=== PATIENT | male | born 1945 | race Caucasian/White ===

== ENCOUNTER 2023-11-15 10:14 | Inpatient (IN) | payer MEDICARE ==
[2023-11-09 14:48] LABS: BASOPHILS # (AUTO) 0.1 X10'3 (0-0.2); BASOPHILS % (AUTO) 0.6 % (0-1); EOSINOPHILS # (AUTO) 0.3 X10'3 (0-0.9); EOSINOPHILS % (AUTO) 3.6 % (0-6); LYMPHOCYTES # (AUTO) 1.5 X10'3 (1.1-4.8); LYMPHOCYTES % (AUTO) 16.9 % (21-51); MEAN CORPUSCULAR HEMOGLOBIN 31.9 PG (27.0-31.0); MEAN CORPUSCULAR HGB CONC 33.8 g/dL (33.0-36.5); MEAN CORPUSCULAR VOLUME 94.5 FL (78-98); MEAN PLATELET VOLUME 6.5 FL (7.4-10.4); MONOCYTES # (AUTO) 0.8 X10'3 (0-0.9); MONOCYTES % (AUTO) 8.5 % (2-12); NEUTROPHILS # (AUTO) 6.4 X10'3 (1.8-7.7); NEUTROPHILS % (AUTO) 70.4 % (42-75); PRE OP HEMATOCRIT 42.8 % (42.0-52.0); PRE OP HEMOGLOBIN 14.5 g/dL (14.0-17.9); PRE OP PLATELET COUNT 337 X10'3 (140-440); RED BLOOD COUNT 4.53 X10'6 (4.70-6.10); RED CELL DISTRIBUTION WIDTH 13.6 % (11.5-14.5)
[2023-11-09 15:06] LABS: ALBUMIN 4.2 G/DL (3.4-5.0); ALBUMIN/GLOBULIN RATIO 1.1 (1.1-1.5); ALKALINE PHOSPHATASE 84 IU/L (46-116); BLOOD UREA NITROGEN 11 MG/DL (7-18); BUN/CREATININE RATIO 15.3 (10.0-20.0); CALCIUM 9.6 MG/DL (8.5-10.1); CHLORIDE 94 MMOL/L (99-107); CREATININE 0.72 MG/DL (0.60-1.10); PRE OP ALT 31 U/L (30-65); PRE OP ANION GAP 8 (8-16); PRE OP AST 21 U/L (10-37); PRE OP BILIRUB, TOTAL 0.7 MG/DL (0.0-1.0); PRE OP GLUCOSE 103 MG/DL (70-104); PRE OP POTASSIUM 4.4 MMOL/L (3.4-5.1); PRE OP SODIUM 131 MMOL/L (135-145); TOTAL CARBON DIOXIDE 28.6 MMOL/L (24-32); TOTAL PROTEIN 7.9 G/DL (6.4-8.2); eGFR > 90 ML/MIN
[~2023-11-15] VITALS: Ht 190.5 cm; Wt 80.2 kg
[2023-11-15] VITALS (45 sets, daily range): BP systolic 90–148; BP diastolic 50–95; PULSE 74–108; RESP 11–29; TEMP 96.8–97.1; O2SAT 87–100
[2023-11-15] MEDS: cefazolin 2gm/D5W 100mL 100 ML IV ONE (05:30)
[~2023-11-15 10:14] MED LIST: AMLO5TAB16 PO; ASHWAGANDA; ASPIRIN; BENA10TA74 PO; GINSENG; MAGNESIUM; PRESERVISION; TEST75GE10 TOP; VITAMIN C; VITAMIN D3
[2023-11-15] MEDS: tamsulosin 0.4mg capsule PO ONE (10:40)
[2023-11-15] MEDS: famotidine 20mg tablet PO ONE (10:40)
[2023-11-15] MEDS: ringers solution, lacted 1,000 ML IV SCH (10:44)
[2023-11-15 11:23] LABS: ISTAT ANION GAP 7 (8-12); ISTAT BUN 17 mg/dL (7-18); ISTAT CL 96 mmol/L (99-107); ISTAT CREATININE 0.8 mg/dL (0.8-1.3); ISTAT GLUCOSE 98 mg/dL (70-104); ISTAT HGB 14.6 g/dl (14.0-17.9); ISTAT Hct 43 %PCV (42-52); ISTAT IONIZED CALCIUM 1.16 mmol/L (1.03-1.32); ISTAT K 4.3 mmol/L (3.5-5.1); ISTAT NA 131 mmol/L (135-145); ISTAT TOTAL CO2 28 mmol/L (24-32); ISTAT eGFR > 90 ML/MIN; POC BUN/CREATININE RATIO 21.3 (5.4-32.0)
[2023-11-15] MEDS: LIDOcaine 1% (10mg/ml)w/preservative inj. 20ml MDV ONE (11:23)
[2023-11-15] MEDS ORDERED: morphine 4 MG/ML inj SYRINge IV PRN (11:40)
[2023-11-15] MEDS ORDERED: proCHLORperazine 10 MG/2 ml inj IV PRN (11:40)
[2023-11-15] MEDS ORDERED: hydrALAZINE 20mg/ml inj. IV PRN (11:40)
[2023-11-15] MEDS ORDERED: meperidine/PF 25mg/ml syringe IV PRN ×3 (11:40)
[2023-11-15] MEDS ORDERED: ondansetron/PF 4mg/2ml inj IV PRN ×2 (11:40→18:30)
[2023-11-15] MEDS ORDERED: sevoflurane 250ml liquid IH ONE (11:40)
[2023-11-15] MEDS ORDERED: morphine 2 MG/ML inj. syringe IV PRN (11:40)
[2023-11-15] MEDS ORDERED: labetalol 20mg/4ml (5mg/ml) syringe IV PRN (11:40)
[2023-11-15] MEDS ORDERED: midazolam 1 mg/ML 2ml injection ONE (11:46)
[2023-11-15] MEDS ORDERED: fentaNYL /PF 50mcg/ml 5ml ampule ONE ×2 (11:47→11:54)
[2023-11-15] MEDS ORDERED: rocuronium 10mg/ml inj IV ONE (12:20)
[2023-11-15] MEDS ORDERED: propofol inj 20 ML IV ONE (12:20)
[2023-11-15] MEDS ORDERED: LIDOcaine 2% (20mg/ml) 5ml vial ONE (12:20)
[2023-11-15] MEDS ORDERED: ondansetron/PF 4mg/2ml inj ONE (12:20)
[2023-11-15] MEDS ORDERED: dexamethasone sod phosphate 4mg/ml inj. ONE (12:20)
[2023-11-15] MEDS: LIDOCAINE 1% w/preservative (10 MG/ML) inj. 10mL VIAL IJ ONE (12:26)
[2023-11-15] MEDS ORDERED: 0.9 % SODIUM CHLORIDE 10 ML VIAL ONE (12:55)
[2023-11-15] MEDS ORDERED: ePHEDrine 50MG/ML INJ. ONE (12:55)
[2023-11-15] MEDS ORDERED: glycopyrrolate 0.2mg/ml inj ONE (13:40)
[2023-11-15] MEDS ORDERED: neostigmine methylsulfate 1 MG/ML 10ml vial ONE (13:40)
[2023-11-15] MEDS ORDERED: HYDROcodone/acetaminophen 5mg/325mg tablet PO PRN (14:20)
[2023-11-15] MEDS ORDERED: HYDR-3964 PO (14:25)
[2023-11-15] MEDS: ipratropium/albuterol 3ml nebule NEB PRN (16:26)
[2023-11-15] MEDS: LidoCAINE 2% Topical Jelly 11mL syringe (UROJET) TOP STA (17:25)
[2023-11-15] MEDS: furosemide 20 MG/2 ML vial IV STA (17:47)
[2023-11-15] MEDS ORDERED: furosemide 40mg/4ml inj ONE (17:56)
[2023-11-15] MEDS ORDERED: magnesium 2GM in 50ml NS 50 ML IV PRN (18:30)
[2023-11-15] MEDS ORDERED: acetaminophen 650mg rectal suppository RC PRN (18:30)
[2023-11-15] MEDS ORDERED: acetaminophen 325mg tablet PO PRN (18:30)
[2023-11-15] MEDS ORDERED: magnesium hydroxide 30ml (MOM) UD suspension PO PRN (18:30)
[2023-11-15] MEDS ORDERED: magnesium 4gm in 100ml NS 100 ML IV PRN (18:30)
[2023-11-15] MEDS ORDERED: potassium Cl 40MEQ/1/2NS 520ml 520 ML IV PRN (18:30)
[2023-11-15] MEDS ORDERED: mag hydrox/Alum hydrox/simeth 30ml oral suspension PO PRN (18:30)
[2023-11-15] MEDS ORDERED: magnesium Cl slow-release 64mg tablet PO PRN (18:30)
[2023-11-15] MEDS ORDERED: potassium Cl 20 mEq SR tablet PO PRN ×2 (18:30)
[2023-11-15] MEDS ORDERED: ipratropium/albuterol 3ml nebule NEB PRN (18:40)
[2023-11-15] MEDS ORDERED: CefTRIAXone/D5W-Rocephin 1gm 50 ML IV SCH (19:50)
[2023-11-15] MEDS: normal saline 1000ml 1,000 ML IV SCH (20:13)
[2023-11-15 21:09] LABS: BASOPHILS % (AUTO) 0.2 % (0-1); EOSINOPHILS % (AUTO) 0 % (0-6); HEMOGLOBIN 13.4 g/dl (14.0-17.9); LYMPHOCYTES # (AUTO) 0.3 X10'3 (1.1-4.8); LYMPHOCYTES % (AUTO) 1.9 % (21-51); MEAN CORPUSCULAR HEMOGLOBIN 31.8 PG (27.0-31.0); MEAN CORPUSCULAR HGB CONC 33.6 g/dL (33.0-36.5); MEAN CORPUSCULAR VOLUME 94.5 FL (78-98); MEAN PLATELET VOLUME 6.7 FL (7.4-10.4); MONOCYTES # (AUTO) 0.7 X10'3 (0-0.9); MONOCYTES % (AUTO) 4.9 % (2-12); NEUTROPHILS # (AUTO) 12.9 X10'3 (1.8-7.7); PLATELET COUNT 265 X10'3 (140-440); RED BLOOD COUNT 4.23 X10'6 (4.70-6.10); RED CELL DISTRIBUTION WIDTH 13.8 % (11.5-14.5); WHITE BLOOD COUNT 13.9 X10'3 (4.5-11.0)
[2023-11-15 21:21] LABS: ALANINE AMINOTRANSFERASE 24 U/L (12-78); ALBUMIN 3.2 G/DL (3.4-5.0); ALBUMIN/GLOBULIN RATIO 0.9 (1.1-1.5); ALKALINE PHOSPHATASE 66 IU/L (46-116); ANION GAP 11 (8-16); ASPARTATE AMINO TRANSFERASE 16 U/L (10-37); BILIRUBIN,TOTAL 0.9 MG/DL (0.1-1.0); BLOOD UREA NITROGEN 14 MG/DL (7-18); BUN/CREATININE RATIO 15.7 (10.0-20.0); CALCIUM 8.6 MG/DL (8.5-10.1); CHLORIDE 95 MMOL/L (99-107); CREATININE 0.89 MG/DL (0.60-1.10); GLUCOSE 195 MG/DL (70-104); POTASSIUM 3.8 MMOL/L (3.5-5.1); SODIUM 130 MMOL/L (135-145); TOTAL CARBON DIOXIDE 24.5 MMOL/L (24-32); TOTAL PROTEIN 6.6 G/DL (6.4-8.2); eCRCL 78 ML/MIN; eGFR 83 ML/MIN
[2023-11-15 21:30] LABS: PRO BRAIN NATRIURETIC PEPTIDE 48 PG/ML (0-450)
[2023-11-15] MEDS: azithromycin/NS 500mg/250ml 250 ML IV SCH (21:30)
[2023-11-15] MEDS: K and/or MAG REPLACEMENT MC SCH (21:34)
[2023-11-15 23:49] LABS: BILIRUBIN,URINE NEGATIVE (Neg); CLARITY,URINE CLEAR (Clear); COLOR,URINE YELLOW (Yellow); GLUCOSE, URINE 250 mg/dl (Neg); KETONES,URINE NEGATIVE (Neg); LEUKOCYTE ESTERASE ,URINE NEGATIVE (Neg); NITRITES, URINE NEGATIVE (Neg); OCCULT BLOOD,URINE SMALL (Neg); PROTEIN,URINE NEGATIVE (Neg); UROBILINOGEN,URINE 0.2 E.U/dL (0.2-1.0)
[2023-11-15 23:51] LABS: URINE AMPHETAMINE SCREEN NEGATIVE (Neg); URINE BARBITUATE SCREEN NEGATIVE (Neg); URINE BENZODIAZEPINES SCREEN POSITIVE (Neg); URINE CANNABINOID SCREEN NEGATIVE (Neg); URINE COCAINE SCREEN NEGATIVE (Neg); URINE METHADONE SCREEN NEGATIVE (Neg); URINE OPIATE SCREEN NEGATIVE (Neg); URINE PHENCYCLIDINE SCREEN NEGATIVE (Neg)
[2023-11-15 23:52] LABS: UA COLLECTION TYPE FOLEY CATH
[2023-11-16] VITALS (7 sets, daily range): BP systolic 132–179; BP diastolic 72–100; PULSE 78–97; RESP 14–18; TEMP 97.3–98.1; O2SAT 92–98
[2023-11-16 00:08] LABS: BACTERIA,URINE FEW /HPF (Neg); SQUAMOUS EPITHELIAL CELL,UR FEW /LPF (FEW); TRANSITIONAL EPI CELLS,URINE FEW /HPF; WBC,URINE 0-4 /HPF (0-4)
[2023-11-16] MEDS: normal saline 1000ml 1,000 ML IV ONE ×2 (00:26→02:29)
[2023-11-16] MEDS: piperacillin/tazo 3.375gm/50ml 50 ML IV SCH (01:07)
[2023-11-16 04:28] LABS: BASOPHILS % (AUTO) 0.2 % (0-1); EOSINOPHILS % (AUTO) 0 % (0-6); HEMATOCRIT 34.8 % (42.0-52.0); HEMOGLOBIN 11.5 g/dl (14.0-17.9); LYMPHOCYTES # (AUTO) 0.6 X10'3 (1.1-4.8); LYMPHOCYTES % (AUTO) 5.2 % (21-51); MEAN CORPUSCULAR HEMOGLOBIN 31.4 PG (27.0-31.0); MEAN CORPUSCULAR HGB CONC 33.1 g/dL (33.0-36.5); MEAN CORPUSCULAR VOLUME 94.8 FL (78-98); MEAN PLATELET VOLUME 6.8 FL (7.4-10.4); MONOCYTES # (AUTO) 0.7 X10'3 (0-0.9); MONOCYTES % (AUTO) 6.1 % (2-12); NEUTROPHILS # (AUTO) 9.9 X10'3 (1.8-7.7); NEUTROPHILS % (AUTO) 88.5 % (42-75); PLATELET COUNT 250 X10'3 (140-440); RED BLOOD COUNT 3.67 X10'6 (4.70-6.10); RED CELL DISTRIBUTION WIDTH 13.5 % (11.5-14.5); WHITE BLOOD COUNT 11.2 X10'3 (4.5-11.0)
[2023-11-16 04:41] LABS: ALANINE AMINOTRANSFERASE 19 U/L (12-78); ALBUMIN 2.4 G/DL (3.4-5.0); ALBUMIN/GLOBULIN RATIO 0.9 (1.1-1.5); ALKALINE PHOSPHATASE 49 IU/L (46-116); ANION GAP 10 (8-16); ASPARTATE AMINO TRANSFERASE 15 U/L (10-37); BILIRUBIN,TOTAL 0.6 MG/DL (0.1-1.0); BLOOD UREA NITROGEN 12 MG/DL (7-18); BUN/CREATININE RATIO 21.8 (10.0-20.0); CHLORIDE 102 MMOL/L (99-107); CREATININE 0.55 MG/DL (0.60-1.10); GLUCOSE 124 MG/DL (70-104); MAGNESIUM 1.5 MG/DL (1.5-2.4); POTASSIUM 3.6 MMOL/L (3.5-5.1); SODIUM 135 MMOL/L (135-145); TOTAL CARBON DIOXIDE 23.4 MMOL/L (24-32); TOTAL PROTEIN 5.2 G/DL (6.4-8.2); eCRCL 126 ML/MIN; eGFR > 90 ML/MIN
[2023-11-16] MEDS: acetaminophen 325mg tablet PO PRN (08:19)
[2023-11-16] MEDS: piperacillin/tazo 4.5gm/100ml 100 ML IV SCH (10:41)
[2023-11-16] MEDS: BUPIVAcaine 2.5mg/ml inj 50ml vial (contains preservative) ONE (11:36)
[2023-11-16] MEDS: acetaminophen 1,000mg/100ml IV 100 ML IV ONE (11:37)
[2023-11-16] MEDS: ringers solution, lacted 1,000 ML IV SCH (11:37)
[2023-11-16] MEDS ORDERED: LEVO750T68 PO (15:36)
[2023-11-16] MEDS ORDERED: enoxaparin 40mg/0.4ml syringe SUBCUT SCH (20:00)
== END 2023-11-16 18:10 | disposition home or self-care (01) | DRG 350 ==
LOC: SSTAY O 10:14 → UNDOADMIN 18:34 → SUR 3N 18:34 → PCU 3S 22:35
PROVIDERS: ADMIT Internal Medicine; ATTEND Internal Medicine
PROC: 8E0W4CZ Robotic Assisted Procedure of Trunk Region, Percutaneous Endoscopic Approach (ICD-10-PCS; 2023-11-15)
PROC: 0YUA4JZ Supplement Bilateral Inguinal Region with Synthetic Substitute, Percutaneous Endoscopic Approach (ICD-10-PCS; principal; 2023-11-15 11:40)
DX: K40.20 Bilateral inguinal hernia, without obstruction or gangrene, not specified as recurrent (principal); J18.8 Other pneumonia, unspecified organism; E87.1 Hypo-osmolality and hyponatremia; I10 Essential (primary) hypertension; F10.90 Alcohol use, unspecified, uncomplicated; E87.8 Other disorders of electrolyte and fluid balance, not elsewhere classified; Z87.891 Personal history of nicotine dependence
CPT/HCPCS: 36415; 71045; 80047; 80053; 80305; 81001; 82948; 83605; 83735; 83880; 84145; 85025; 87040; 87081; 93005; 94640; 94760; A4215; A4615; A4618; C1758; C1781; G0378; J0456; J0690; J1100; J1940; J2250; J2405; J2543; J2704; J2710; J3010; J3490; J7030; J7040; J7120; S0020